=== PATIENT | male | born 2000 | race Caucasian/White ===

== ENCOUNTER 2024-09-19 15:02 | Outpatient (CLI) | payer OTHER, SELFPAY | END 2024-09-19 15:03 | disposition home or self-care (01) | LOC: NFLDREF 09-23 06:49 | PROVIDERS: Visit Provider Nurse Practitioner Family | DX: R30.0 Dysuria (principal); R39.9 Unspecified symptoms and signs involving the genitourinary system | CPT/HCPCS: 87086 ==

== ENCOUNTER 2024-09-21 15:50 | Outpatient (CLI) | payer OTHER, SELFPAY | END 2024-09-21 15:51 | disposition home or self-care (01) | LOC: NFLDREF 09-26 02:57 | PROVIDERS: Visit Provider Physician Assistant | DX: R30.0 Dysuria (principal); Z11.3 Encounter for screening for infections with a predominantly sexual mode of transmission | CPT/HCPCS: 87491; 87591 ==

== ENCOUNTER 2025-05-22 16:28 | Outpatient (CLI) | payer OTHER, SELFPAY ==
[2025-05-22 23:00] LABS: Chlamydia DNA Amplified* NOT DETECTED (No Detected); GC DNA Amplified* NOT DETECTED (No Detected)
== END 2025-05-22 16:29 | disposition home or self-care (01) ==
PROVIDERS: Visit Provider Physician Assistant
DX: R30.0 Dysuria (principal); Z11.3 Encounter for screening for infections with a predominantly sexual mode of transmission
CPT/HCPCS: 86694; 86703; 87491; 87591